=== PATIENT | female | born 1990 | race Caucasian/White ===

== ENCOUNTER → 2016-10-12 | Outpatient (CLI) | payer BC ==
[2016-10-12 18:40] VITALS: BP 133/90
== END ==
LOC: MHUC 18:17
PROVIDERS: ATTEND Physician Assistant
DX: J01.10 Acute frontal sinusitis, unspecified (principal)
CPT/HCPCS: 99203

== ENCOUNTER → 2016-12-09 | Outpatient (CLI) | payer BC ==
[~2016-12-09] MED LIST: AZIT250T81 PO
[2016-12-09 11:17] VITALS: BP 122/80
--- NOTE | 2016-12-09 11:17 | Urgent Care T Sheet Gen (E) ---
Intake General Temperature (Fahrenheit): 98.3 Pulse: 83 Blood Pressure Systolic: 122 Blood Pressure Diastolic: 80 Respirations: 20 SPO2: 99 Description of Symptoms Patient presents with illness since Tuesday. Notes nasal congestion, JORGE, PND and cough. No fever. Patient has allergies however takes no meds. Also requests a note for work. Been treating her symptoms with DayQuil and Tylenol. History of Present Illness Home Meds Active Scripts Azithromycin (Zithromax Z-Korey)6 Tab/Pkt [id number] Mg PO SEE INSTRUCTIONS Infection #6 PKT Ref 0 Day One: Take 2 tablets by mouth Days Two-Five: Take 1 tablet by mouth Prov:SADI ANDRES 10/12/16 Respiratory Constitutional Symptoms: No Fever, Malaise EENTM: Nose Congestion Throat pain Respiratory: Cough Cardiovascular: No symptoms reported Neurological: Headache All Other Systems Reviewed Remaining Systems: All other systems reviewed with negative findings Past Xxogdxi-Ychsui-Alcdok Hx Patient's Social History Alcohol Use: Occasionally Uses Smoking Status: Current every day smoker Physical Exam Physical Exam General Appearance: WD/WN No apparent distress Eyes, Ears, Nose, Throat Ex: TMs normal Pharyngeal erythema (thick PND) Other (very red and swollen nasal turbinates with purulent drainage. very tender over frontal sinuses) Neck Exam: SuppleNo Lymphadenopathy Respiratory Exam: Lungs clear (didn't cough during exam.) Normal breath sounds Cardiovascular Exam: Regular rate, rhythm Departure Urgent Care Impression Impression: Primary Impression: Sinusitis Qualified Code: J01.10 - Acute frontal sinusitis, unspecified Departure Disposition: HOME OR SELF-CARE Condition: Stable Additional Instructions: I have started the patient on Zpak for treatment instructed her to take daily antihistamine and use daily nasal steroid for treatment of her allergies Note was given excusing her from work for yesterday and today Return as needed Patient understands DC instructions. All questions were answered. Scripts Azithromycin (Zithromax Z-Korey)6 Tab/Pkt [id number] Mg PO SEE INSTRUCTIONS #6 TAB Ref 0 Day One: Take 2 tablets by mouth Days Two-Five: Take 1 tablet by mouth Prov:PADMINI NASH 12/09/16 End of report . PADMINI NASH December 09, 2016 11:16
== END ==
LOC: MHUC 10:58
PROVIDERS: ATTEND Physician Assistant
DX: J01.10 Acute frontal sinusitis, unspecified (principal)
CPT/HCPCS: 99213